=== PATIENT | female | born 1950 | race Caucasian/White ===

== ENCOUNTER → 2018-12-20 | Outpatient (CLI) | payer OTHER ==
[~2018-12-20] MED LIST: INDOCIN25 MG PO; MEDROL DOSEPAK4 MG PO; NKHM; PERCOCET 325 MG1 TA2 PO; ZYLOPRIM100 MG PO
== END | disposition home or self-care (01) ==
LOC: CARD 14:34
DX: I34.8 Other nonrheumatic mitral valve disorders (principal)

== ENCOUNTER → 2022-03-27 | Outpatient (CLI) | payer MEDICARE ==
[~2022-03-27] MED LIST changes: +AMLODIPINE BESYL5 MG PO; +ASPIRIN CHILDRE81 MG PO; +ATORVASTATIN CA40 M1 PO; +CLOPIDOGREL75 MG PO; +METOPROLOL SUCC50 M1 PO
== END | disposition home or self-care (01) ==
LOC: CARD 03-04 09:00 → RAD 03-16 10:30 → CARD 03-16 11:00 → RAD 10:00
PROVIDERS: ATTEND Internal Medicine
DX: M16.11 Unilateral primary osteoarthritis, right hip (principal); I49.3 Ventricular premature depolarization; I34.0 Nonrheumatic mitral (valve) insufficiency; Z78.0 Asymptomatic menopausal state

== ENCOUNTER → 2022-09-04 | Outpatient (CLI) | payer MEDICARE | END | disposition home or self-care (01) | LOC: CARD 06-19 07:00 | PROVIDERS: ATTEND Internal Medicine | DX: R07.9 Chest pain, unspecified (principal); I10 Essential (primary) hypertension; I69.351 Hemiplegia and hemiparesis following cerebral infarction affecting right dominant side; M79.602 Pain in left arm ==